=== PATIENT | female | born 1970 | race Caucasian/White ===

== ENCOUNTER 2018-12-12 08:30 | Inpatient (IN) | payer OTHER, MEDICAID ==
[~2018-12-12 08:30] MED LIST: CLINDAMYCIN 900 MG/50 ML D5W IVPB IVPB; METOCLOPRAMIDE 10 MG INJ; METOPROLOL 5 MG INJ; ONDANSETRON 4 MG INJ
[2018-12-12] MEDS ORDERED: DEXAMETHASONE 4 MG/ML 5 ML INJ (10:18)
[2018-12-12] MEDS ORDERED: SUCCINYLCHOLINE CHLORIDE 100 MG/5 ML SYG IV (10:18)
[2018-12-12] MEDS ORDERED: ROCURONIUM 50 MG INJ (10:18)
[2018-12-12] MEDS ORDERED: MIDAZOLAM 1 MG/ML 2 ML INJ (10:18)
[2018-12-12] MEDS ORDERED: FENTAnyl 50 MCG/ML VIAL (10:18)
[2018-12-12] MEDS ORDERED: PROPOFOL 20 ML (10:18)
[2018-12-12] MEDS ORDERED: LIDOCAINE 2% (SDV) 5 ML INJ (10:18)
[2018-12-12] MEDS ORDERED: GELATIN SIZE 100 SPONGE (10:44)
[2018-12-12] MEDS ORDERED: HALOPERIDOL 5 MG INJ IV (11:00)
[2018-12-12] MEDS ORDERED: LEVALBUTEROL (NEB) 1.25 MG/0.5 ML AMP HHN (11:00)
[2018-12-12] MEDS ORDERED: IPRATROPIUM (NEB) 0.5 MG/2.5 ML AMP HHN (11:00)
[2018-12-12] MEDS ORDERED: DIPHENHYDRAMINE 50 MG INJ IV (11:00)
[2018-12-12] MEDS ORDERED: morphine 2 MG INJ IV (11:00)
[2018-12-12] MEDS ORDERED: hydrALAzine 20 MG INJ IV (11:00)
[2018-12-12] MEDS ORDERED: MEPERIDINE 25 MG INJ IV (11:00)
[2018-12-12] MEDS ORDERED: HYDROmorphONE 1 MG/5 ML IV SYRINGE IV ×3 (11:00)
[2018-12-12] MEDS ORDERED: LABETALOL HCL 20MG INJ IV (11:00)
[2018-12-12] MEDS ORDERED: LORAZEPAM 2 MG INJ IV (11:00)
[2018-12-12] MEDS ORDERED: niCARdipine 50 MG in SOD CHLORIDE 0.9% 480 ML IV (11:00)
[2018-12-12] MEDS ORDERED: ONDANSETRON 4 MG INJ IV (11:00)
[2018-12-12] MEDS ORDERED: MIDAZOLAM 1 MG/ML 2 ML INJ IV (11:00)
[2018-12-12] MEDS ORDERED: FENTAnyl 50 MCG/ML VIAL IV ×2 (11:00)
[2018-12-12] MEDS: BUPIVACAINE 0.5%/EPI (SDV) 30 ML INJ (12:01)
[2018-12-12] MEDS: THROMBIN 5000 UNIT VIAL (12:02)
[2018-12-12] MEDS: POLYMYXIN/BACITRACIN 1L IRRIG (12:02)
[2018-12-12] MEDS ORDERED: SUGAMMADEX SODIUM 200 MG/2 ML VIAL IV (12:07)
[2018-12-12] MEDS ORDERED: HYDROmorphONE 2 MG/ML SYG (12:19)
[2018-12-12] MEDS: CLINDAMYCIN 600 MG/D5W (PMX) 50 ML IVPB ×2 (14:00→18:00)
[2018-12-12] MEDS: DEXAMETHASONE 4 MG/ML 1 ML INJ IV ×2 (15:30→20:05)
[2018-12-12] MEDS ORDERED: morphine 4 MG/ML VIAL (15:38)
[2018-12-12] MEDS: HYDROCODONE/APAP (5/325) TAB PO ×2 (15:48→23:48)
[2018-12-12] MEDS: DEXTROSE 5%-LR 1,000 ML IV (16:00)
[2018-12-12] MEDS: ONDANSETRON 4 MG INJ IV (23:52)
[2018-12-13] MEDS: CLINDAMYCIN 600 MG/D5W (PMX) 50 ML IVPB ×4 (00:15→17:53)
[2018-12-13] MEDS: DEXAMETHASONE 4 MG/ML 1 ML INJ IV ×3 (04:46→11:52)
[2018-12-13 05:10] LABS: ADD MAN DIFF? NO
[2018-12-13 05:17] LABS: WHITE BLOOD COUNT 9.9 10^3/ul (4.8-10.8)
[2018-12-13 05:17] LABS: ABNORMAL IP MESSAGE 1; BASOPHILS % 0.2 % (0.0-2.0); HEMOGLOBIN 11.7 g/dl (12.0-16.0); LYMPHOCYTES # 0.6 10^3/ul (0.8-2.9); LYMPHOCYTES % 5.6 % (15.0-51.0); MEAN CORPUSCULAR HEMOGLOBIN 32.6 pg (29.0-33.0); MEAN CORPUSCULAR HGB CONC 34.4 g/dl (32.0-37.0); MEAN CORPUSCULAR VOLUME 94.7 fl (82.0-101.0); MEAN PLATELET VOLUME 10.5 fl (7.4-10.4); MONOCYTE # 0.2 10^3/ul (0.3-0.9); MONOCYTES % 2.3 % (0.0-11.0); NEUTROPHIL # 9.1 10^3/ul (1.6-7.5); NEUTROPHILS % 91.6 % (39.0-77.0); PLATELET COUNT 264 10^3/UL (140-415); RED BLOOD COUNT 3.59 10^6/ul (4.20-5.40); RED CELL DISTRIBUTION WIDTH 12.2 % (11.5-14.5)
[2018-12-13] MEDS: DEXTROSE 5%-LR 1,000 ML IV ×3 (05:30→11:51)
[2018-12-13 05:33] LABS: POSITIVE DIFF @See below
[2018-12-13 05:45] LABS: ALANINE AMINOTRANSFERASE 20 IU/L (13-69); ALBUMIN 3.6 g/dl (3.3-4.9); ALBUMIN/GLOBULIN RATIO 1.44; ALKALINE PHOSPHATASE 45 IU/L (42-121); ANION GAP 8 (5-13); ASPARTATE AMINO TRANSFERASE 21 IU/L (15-46); BILIRUBIN,INDIRECT 0.1 mg/dl (0-1.1); BILIRUBIN,TOTAL 0.1 mg/dl (0.2-1.3); BLOOD UREA NITROGEN 9 mg/dl (7-20); CALCIUM 8.9 mg/dl (8.4-10.2); CARBON DIOXIDE 22 mmol/L (21-31); CHLORIDE 107 mmol/L (97-110); CREATININE 0.41 mg/dl (0.44-1.00); Estimated GFR > 60 mL/min (>60); GLUCOSE 197 mg/dl (70-220); SODIUM 137 mmol/L (135-144); TOTAL PROTEIN 6.1 g/dl (6.1-8.1)
[2018-12-13] MEDS: HYDROCODONE/APAP (5/325) TAB PO ×2 (10:29→17:58)
[2018-12-13] MEDS: ONDANSETRON 4 MG INJ IV (18:50)
[2018-12-13] MEDS: ACETAMINOPHEN 500 MG TAB PO (18:56)
[2018-12-14] MEDS: ACETAMINOPHEN 500 MG TAB PO (13:34)
== END 2018-12-14 14:45 | disposition home or self-care (01) | DRG 471 ==
LOC: REC 08:30 → ICU 15:21 → MS1 23:20
PROC: 0RG10K0 Fusion of Cervical Vertebral Joint with Nonautologous Tissue Substitute, Anterior Approach, Anterior Column, Open Approach (ICD-10-PCS; principal; 2018-12-12 10:30)
PROC: 0RB30ZZ Excision of Cervical Vertebral Disc, Open Approach (ICD-10-PCS; 2018-12-12 10:30)
DX: M47.12 Other spondylosis with myelopathy, cervical region (principal); G82.50 Quadriplegia, unspecified; M48.02 Spinal stenosis, cervical region; M47.22 Other spondylosis with radiculopathy, cervical region
CPT/HCPCS: 72050; 80053; 85025; 86850; 86870; 86900; 86901; 87081; 87086; 97116; 97161; 97530